=== PATIENT | male | born 2000 | race Two or more races ===

== ENCOUNTER 2024-02-16 06:40 | Day surgery (SDC) | payer MEDICAID, SELFPAY ==
[2024-02-13 08:15] VITALS: BMI 26.4
[2024-02-13 08:59] LABS: Basophils # (Auto) 0.1 Thou/mm3 (0.0-0.2); Basophils % (Auto) 1 % (0-2.5); Eosinophils # (Auto) 0.3 Thou/mm3 (0.0-0.5); Eosinophils % (Auto) 3 % (0-10); Hematocrit 42.7 % (41.0-53.0); Hemoglobin 14.1 g/dL (13.5-16.0); Immature Granulocytes % (Auto) 0 % (0-0); Immature Granulocytes Auto 0.03 Thou/mm3 (0.00-0.00); Lymphocytes % (Auto) 29 % (10-50); Mean Corpuscular Hemoglobin 27.9 pg (25.0-35.0); Mean Corpuscular Volume 85 fL (80-100); Monocytes # (Auto) 0.8 Thou/mm3 (0.0-0.8); Monocytes % (Auto) 7 % (0-12); Neutrophils # (Auto) 6.1 Thou/mm3 (1.8-7.7); Neutrophils % (Auto) 60 % (37-80); Nucleated Red Blood Cell % 0 /100 WBC (0); Platelet Count 318 Thou/mm3 (140-440); RDW Standard Deviation 41.1 fL (35.1-43.9); Red Blood Count 5.05 Miln/mm3 (4.50-5.90); White Blood Count 10.2 Thou/mm3 (3.8-10.6)
[2024-02-13 09:26] LABS: Anion Gap 8 (7-16); BUN/Creatinine Ratio 18 Ratio (12-20); Blood Urea Nitrogen 14 mg/dL (9-23); Calcium 9.9 mg/dL (8.3-10.6); Carbon Dioxide 27.6 mMol/L (20.0-31.0); Chloride 103 mMol/L (98-107); Creatinine (Component) 0.8 mg/dL (0.6-1.3); Estimated Creatinine Clearance 123.9 mL/min (>60); Glucose 99 mg/dL (74-106); Osmolality,Calculated 278 (275-295); Potassium 4.3 mMol/L (3.4-5.1); Sodium 139 mMol/L (136-145); Thyroid Stimulating Hormone 2.98 uIU/mL (0.55-4.78); eGFR > 60 See Note
[2024-02-16] VITALS (7 sets, daily range): BP systolic 118–139; BP diastolic 81–89; PULSE 81–94; RESP 14–20; TEMP 36.1–36.7; O2SAT 96–100; BMI 26.7
[2024-02-16] MEDS: RINGERS LACTATED 1000 ML 1,000 ML 20 ML IV (07:33)
--- NOTE | 2024-02-16 10:26 | PD.SUROPNT ---
Date of Procedure 02/16/24 Pre Op Diagnosis Enlarging right thyroid nodule Post Op Diagnosis Enlarging right thyroid nodule Procedure Right thyroid lobectomy Findings Enlarged right thyroid nodule displacing trachea to the left Procedure Description Patient brought to the operating room in supine position. After administration of general endotracheal anesthesia, patient's neck was extended and prepped and draped in standard surgical manner. An approximately 5 cm semicircular incision was made approximately 2 fingerbreadths above the sternal notch. Dissection was carried subcutaneous tissue and platysma was divided. Superior and inferior subplatysmal plane were developed. Median raphae was identified and divided. The strap muscle on the right side was retracted laterally and the areolar tissue between the strap muscle and the thyroid tissues were divided. Patient was noted to have significantly enlarged right thyroid nodule, displacing trachea to the left. The median thyroid vein was identified and ligated. The left side was palpated, no obvious nodules or any lesions noted. The right superior pole vessels were mobilized and divided with 0 silk tie. The inferior vessels were then individually identified and ligated. The recurrent laryngeal nerve on the left side was identified and kept away from dissection proceeded all times. I was unable to clearly identify the superior and inferior parathyroid glands. Once the vessels were ligated the thyroid was from the anterior surface of the trachea by dividing the ligament of Green. A clamp was placed just to the left of the midline on the thyroid tissue and the right lobe of thyroid was removed. The right lobe was marked with sutures to orient the pathologist. 0 silk suture was used and placed around the clamp and the clamp was released. The area was copiously thoroughly washed and irrigated, all the fluids were suctioned in the section fluids and clear. Hemostasis was adequate and satisfactory. Topical hemostatic agent snow Surgicel placed on the right side of the neck to further secure hemostasis. Median raphae was then closed with running 2-0 Vicryl. Platysma reapproximated with interrupted sutures using 3-0 Vicryl, and the incision was closed with 4-0 Monocryl subcuticular fashion. Instruments, needle and sponge counts were reported to be correct ?2. Patient tolerated procedure well. She was extubated, breathing spontaneously and without difficulty and was transferred to postanesthesia care in stable condition. Anesthesia GETA and local Pathology / specimen Other (Right thyroid lobe) Estimated Blood Loss 25 Condition Stable Disposition PACU Surgeon Nohemy Rodriguez MD Surgical Staff Operation Date: 02/16/24 08:30 Case Staff Anesthesiologist: Marco A Briggs RN First Assistant: Taya Martin
--- NOTE | 2024-02-16 10:38 | SUR.PHASEI ---
1038 Patient arrived to recovery resting comfortably in [facility], on oxygen 4L via oxy mask, drowsy and able to arouse with verbal prompting, breathing unlabored, vital signs stable, denies pain, dressing intact to neck; dermabond, fluffs, medipore tape, no bleeding noted, lung sounds clear upon auscultation, bilateral radial pulses present when palpated, report received from Fabiano DURAND and Dr. Briggs
--- NOTE | 2024-02-16 11:36 | SUR.PHASEII ---
1136 Patient meets discharge criteria from recovery, awake and alert, breathing unlabored, vital signs stable, denies pain, stating I just feel sore , patient eating ice chips; tolerating well, denies nausea, patient assisted with dressing into his clothing by his mom, discharge instructions given to patient and patients parents, patients mom signed discharge instructions. Patient given all his belongings prior to discharge, transported via wheelchair and left in a private vehicle.
== END 2024-02-16 11:36 | disposition home or self-care (01) ==
PROVIDERS: PCP Family Medicine; Referring Provider Surgery; Visit Provider Surgery
PROC: (CPT 60220; principal; 2024-02-16 08:30)
DX: E04.1 Nontoxic single thyroid nodule (principal)
CPT/HCPCS: 60220; 36415; 80048; 84436; 84443; 85025; A4217; A4649; J1100; J1885; J2250; J2405; J2704; J3010; J3490; J7120